=== PATIENT | female | born 1950 | race Caucasian/White ===

== ENCOUNTER 2016-12-09 20:15 | Inpatient (IN) | payer MEDICARE, BC ==
[~2016-12-09] VITALS: Ht 165.1 cm; Wt 75.2 kg
[~2016-12-09 20:15] MED LIST: ASPI-110 PO; ASPI81; CENTTAB PO; HYDR25TA5 PO; LEXA10TA PO; LISI-515 PO; MONT10TA4 PO; SIMV20TA PO
[2016-12-09 20:35] VITALS: BP 150/81; PULSE 73; RESP 20; TEMP 97.6; O2SAT 98
[2016-12-09 20:47] VITALS: BP 150/81; PULSE 73; RESP 20; TEMP 97.6; O2SAT 98
[2016-12-09] MEDS ORDERED: SODIUM CHLOR 0.9% 1000 ML INJ 1,000 ML IV ONE (21:30)
[2016-12-09] MEDS ORDERED: ONDANSETRON HCL 4 MG/2 ML VIAL IV PUSH ONE (21:30)
--- NOTE | 2016-12-09 21:39 | PD ---
HPI Chief Complaint: Psychiatric Symptoms Time Seen by Provider: 20:59 Travel History International Travel<30 days: No Contact w/Intl Traveler<30days: No Traveled to known affect area: No History of Present Illness HPI Patient is a 66-year-old female presenting to the emergency department for psychiatric evaluation. Patient admits to take for of her 's oxycodone' s evening after drinking almost an entire bottle of wine. She states that she did this because she was feeling sad and depressed and had suicidal thoughts. Patient states that she took 3 or 4 of those pills. She reports drinking alcohol on a daily basis, is at bedside and states that she is hiding alcohol. Patient has a 30 year history of depression, she has no previous suicide attempts but states she's felt suicidal in the past approximately 22 years ago. Patient states over the last 2 months her depression has worsened which is consistent with the increase in alcohol intake per her 's report. She is currently on Lexapro 20 mg a day. She reports compliance with this medication. She denies any visual or auditory Hallucinations. Patient fell at home after she took the oxycodone, the fall was not witnessed and found her in the bushes. Patient denies any headache, chest pain, shortness of breath, abdominal pain. She has abrasions to her back. PFSH Past Medical History Hx Anticoagulant Therapy: No (Low dose ASA daily) Depression: Yes Cancer: Yes (skin cancer) Cardiovascular Problems: No High Cholesterol: Yes Chemotherapy: No Cerebrovascular Accident: No Diabetes: No Diminished Hearing: No Hypertension: Yes Respiratory: No Immunizations Current: Yes Triglycerides - High: Yes Tetanus Vaccination: Unknown Influenza Vaccination: No ?: Not Menopausal: Yes : 0 Past Surgical History Hysterectomy: No Other Surgery: Yes (SKIN CA) Social History Alcohol Use: Yes Tobacco Use: Yes Substance Use: No Allergies-Medications (Allergen,Severity, Reaction): Coded Allergies: No Known Allergies (Verified , 06/17/16) Reported Meds & Prescriptions Reported Meds & Active Scripts Active Reported Aspirin 81 (Aspirin) 81 Mg Tabdr 81 Mg PO DAILY Centrum Silver (Multiple Vitamins W/ Minerals) 1 Tab 1 Tab PO DAILY Montelukast (Montelukast Sodium) 10 Mg Tab 10 Mg PO HS Lexapro (Escitalopram Oxalate) 10 Mg Tab 10 Mg PO DAILY Hydrochlorothiazide 25 Mg Tab 25 Mg PO DAILY Lisinopril 20 Mg Tab 20 Mg PO DAILY Simvastatin 20 Mg Tab 20 Mg PO DAILY Aspirin 81 Mg Tab Review of Systems Except as stated in HPI: all other systems reviewed are Neg Gastrointestinal: Positive: Nausea, Vomiting Psychiatric: Positive: Depression, Suicidal Ideations, Substance Abuse Physical Exam Exam Limitations: Intoxication Narrative GENERAL: Well-developed, well-nourished, alert female. Resting in no acute distress. SKIN: Warm and dry. Superficial abrasion to left mid back, mild bruising to left lower back. HEAD: Atraumatic. Normocephalic. EYES: Pupils equal and round. No scleral icterus. No injection or drainage. ENT: No nasal bleeding or discharge. Mucous membranes pink and moist. NECK: Trachea midline. No JVD. CARDIOVASCULAR: Regular rate and rhythm. RESPIRATORY: No accessory muscle use. Clear to auscultation. Breath sounds equal bilaterally. GASTROINTESTINAL: Abdomen soft, non-tender, nondistended. Hepatic and splenic margins not palpable. MUSCULOSKELETAL: Extremities without clubbing, cyanosis, or edema. No obvious deformities. NEUROLOGICAL: Awake and alert. No obvious cranial nerve deficits. Motor grossly within normal limits. Five out of 5 muscle strength in the arms and legs. Normal speech. PSYCHIATRIC: Appropriate mood and affect; insight and judgment normal. Data Data Last Documented VS Vital Signs Date Time Temp Pulse Resp B/P (MAP) Pulse Ox O2 Delivery O2 Flow Rate FiO2 12/09/16 20:47 97.6 73 20 150/81 (104) 98 Room Air Orders Orders Complete Blood Count With Diff (12/09/16 21:17) Comprehensive Metabolic Panel (12/09/16 21:17) Urinalysis - C+S If Indicated (12/09/16 21:17) Psych Screen (12/09/16 21:17) Drug Screen, Random Urine (12/09/16 21:17) Alcohol (Ethanol) (12/09/16 21:17) Salicylates (Aspirin) (12/09/16 21:17) Tylenol (Acetaminophen) (12/09/16 21:17) Iv Access Insert/Monitor (12/09/16 21:20) Ondansetron Inj (Zofran Inj) (12/09/16 21:30) Sodium Chlor 0.9% 1000 Ml Inj (Ns 1000 M (12/09/16 21:30) Ct Brain W/O Iv Contrast(Rout) (12/09/16 ) Chest, Single Ap (12/09/16 ) Potassium Chloride (Kcl) (12/09/16 23:45) Ondansetron Inj (Zofran Inj) (12/10/16 04:15) Labs Laboratory Tests Test 12/09/16 22:00 12/09/16 23:15 White Blood Count 13.9 TH/MM3 Red Blood Count 3.74 MIL/MM3 Hemoglobin 12.8 GM/DL Hematocrit 36.6 % Mean Corpuscular Volume 97.9 FL Mean Corpuscular Hemoglobin 34.3 PG Mean Corpuscular Hemoglobin Concent 35.1 % Red Cell Distribution Width 11.6 % Platelet Count 306 TH/MM3 Mean Platelet Volume 7.5 FL Neutrophils (%) (Auto) 85.7 % Lymphocytes (%) (Auto) 9.9 % Monocytes (%) (Auto) 4.1 % Eosinophils (%) (Auto) 0.0 % Basophils (%) (Auto) 0.3 % Neutrophils # (Auto) 11.9 TH/MM3 Lymphocytes # (Auto) 1.4 TH/MM3 Monocytes # (Auto) 0.6 TH/MM3 Eosinophils # (Auto) 0.0 TH/MM3 Basophils # (Auto) 0.0 TH/MM3 CBC Comment DIFF FINAL Differential Comment Blood Urea Nitrogen 12 MG/DL Creatinine 0.70 MG/DL Random Glucose 135 MG/DL Total Protein 7.5 GM/DL Albumin 3.9 GM/DL Calcium Level 8.7 MG/DL Alkaline Phosphatase 64 U/L Aspartate Amino Transf (AST/SGOT) 27 U/L Alanine Aminotransferase (ALT/SGPT) 34 U/L Total Bilirubin 0.2 MG/DL Sodium Level 132 MEQ/L Potassium Level 3.0 MEQ/L Chloride Level 95 MEQ/L Carbon Dioxide Level 29.0 MEQ/L Anion Gap 8 MEQ/L Estimat Glomerular Filtration Rate 83 ML/MIN Salicylates Level 2.0 MG/DL Acetaminophen Level 2.2 MCG/ML Ethyl Alcohol Level 152 MG/DL Urine Color YELLOW Urine Turbidity CLEAR Urine pH 6.5 Urine Specific [place] 1.017 Urine Protein TRACE mg/dL Urine Glucose (UA) NEG mg/dL Urine Ketones NEG mg/dL Urine Occult Blood SMALL Urine Nitrite NEG Urine Bilirubin NEG Urine Urobilinogen LESS THAN 2.0 MG/DL Urine Leukocyte Esterase TRACE Urine RBC 3 /hpf Urine WBC 1 /hpf Urine Squamous Epithelial Cells <1 /hpf Urine Hyaline Casts 30 /lpf Urine Mucus FEW /lpf Microscopic Urinalysis Comment CULT NOT INDICATED Urine Opiates Screen NEG Urine Barbiturates Screen NEG Urine Amphetamines Screen NEG Urine Benzodiazepines Screen NEG Urine Cocaine Screen NEG Urine Cannabinoids Screen NEG MDM Medical Decision Making Medical Screen Exam Complete: Yes Emergency Medical Condition: Yes Interpretation(s) Last Impressions Head CT 12/09/16 0000 Signed Impressions: Service Date/Time: Friday, December 09, 2016 21:33 - CONCLUSION: Normal examination. Deonte Hitchcock MD Chest X-Ray 12/09/16 0000 Signed Impressions: Service Date/Time: Friday, December 09, 2016 22:18 - CONCLUSION: Normal examination. Deonte Hitchcock MD Laboratory Tests Test 12/09/16 22:00 12/09/16 23:15 White Blood Count 13.9 TH/MM3 Red Blood Count 3.74 MIL/MM3 Hemoglobin 12.8 GM/DL Hematocrit 36.6 % Mean Corpuscular Volume 97.9 FL Mean Corpuscular Hemoglobin 34.3 PG Mean Corpuscular Hemoglobin Concent 35.1 % Red Cell Distribution Width 11.6 % Platelet Count 306 TH/MM3 Mean Platelet Volume 7.5 FL Neutrophils (%) (Auto) 85.7 % Lymphocytes (%) (Auto) 9.9 % Monocytes (%) (Auto) 4.1 % Eosinophils (%) (Auto) 0.0 % Basophils (%) (Auto) 0.3 % Neutrophils # (Auto) 11.9 TH/MM3 Lymphocytes # (Auto) 1.4 TH/MM3 Monocytes # (Auto) 0.6 TH/MM3 Eosinophils # (Auto) 0.0 TH/MM3 Basophils # (Auto) 0.0 TH/MM3 CBC Comment DIFF FINAL Differential Comment Blood Urea Nitrogen 12 MG/DL Creatinine 0.70 MG/DL Random Glucose 135 MG/DL Total Protein 7.5 GM/DL Albumin 3.9 GM/DL Calcium Level 8.7 MG/DL Alkaline Phosphatase 64 U/L Aspartate Amino Transf (AST/SGOT) 27 U/L Alanine Aminotransferase (ALT/SGPT) 34 U/L Total Bilirubin 0.2 MG/DL Sodium Level 132 MEQ/L Potassium Level 3.0 MEQ/L Chloride Level 95 MEQ/L Carbon Dioxide Level 29.0 MEQ/L Anion Gap 8 MEQ/L Estimat Glomerular Filtration Rate 83 ML/MIN Salicylates Level 2.0 MG/DL Acetaminophen Level 2.2 MCG/ML Ethyl Alcohol Level 152 MG/DL Urine Color YELLOW Urine Turbidity CLEAR Urine pH 6.5 Urine Specific [place] 1.017 Urine Protein TRACE mg/dL Urine Glucose (UA) NEG mg/dL Urine Ketones NEG mg/dL Urine Occult Blood SMALL Urine Nitrite NEG Urine Bilirubin NEG Urine Urobilinogen LESS THAN 2.0 MG/DL Urine Leukocyte Esterase TRACE Urine RBC 3 /hpf Urine WBC 1 /hpf Urine Squamous Epithelial Cells <1 /hpf Urine Hyaline Casts 30 /lpf Urine Mucus FEW /lpf Microscopic Urinalysis Comment CULT NOT INDICATED Vital Signs Date Time Temp Pulse Resp B/P (MAP) Pulse Ox O2 Delivery O2 Flow Rate FiO2 12/09/16 20:47 97.6 73 20 150/81 (104) 98 Room Air 12/09/16 20:35 97.6 73 20 150/81 (104) 98 Differential Diagnosis Substance-induced mood disorder versus contusion versus hemorrhage versus abrasions versus depression versus suicidal ideations versus other Narrative Course Patient is a 66-year-old female currently under Grace act for making suicidal statements and intentionally attempting to overdose on her 's prescription oxycodone. Labs and imaging ordered and pending. Mental health screening discussed with the patient. Psychiatric screen ordered. IV fluids and Zofran ordered, patient was vomiting as a result of taking the oxycodone. Abdominal exam is benign. CBC with a WBC count of 13.9, no signs of infection. CXR and UA unremarkable, patient is afebrile. CMP with a K+ of 3.0, oral replacement ordered Salicylate and acetaminophen level reviewed and no acute abnormalities identified. Pt took the Oxycodone/APAP at 5pm per husbands account, 5 hours passed since ingestion and blood draw with no elevation/abnormality in acetaminophen level. Urine drug screen was negative however it was discussed with my attending physician that oxycodone may not appear positive. Alcohol level is 152, pt was given 1L NS bolus and has had no further vomiting. Patient is medically cleared for psychiatric evaluation at this time. Diagnosis Primary Impression: Medical clearance for psychiatric admission Additional Impressions: Acute alcohol intoxication Qualified Codes: F10.929 - Alcohol use, unspecified with intoxication, unspecified Depression Qualified Codes: F32.9 - Major depressive disorder, single episode, unspecified Suicidal ideation Condition: Stable Nanette Berger [facility] Dec 09, 2016 21:39
--- NOTE | 2016-12-09 21:43 | RADRPT ---
EXAM DATE/TIME: 12/09/2016 22:18 [facility] COMPARISON: No previous studies available for comparison. INDICATIONS : Short of breath. MEDICAL HISTORY : None. SURGICAL HISTORY : None. ENCOUNTER: Initial ACUITY: 1 day PAIN SCORE: 0/10 LOCATION: Bilateral chest FINDINGS: A single view of the chest demonstrates the lungs to be symmetrically aerated without evidence of mas s, infiltrate or effusion. The cardiomediastinal contours are unremarkable. Osseous structures are intact. CONCLUSION: Normal examination. Deonte Hitchcock MD on December 09, 2016 at 21:41 Board Certified Radiologist. This report was verified electronically.
--- NOTE | 2016-12-09 21:56 | RADRPT ---
EXAM DATE/TIME: 12/09/2016 21:33 [facility] COMPARISON: No previous studies available for comparison. INDICATIONS : Altered mental status. RADIATION DOSE: 32.54 CTDIvol (mGy) MEDICAL HISTORY : Hypertension. Substance abuse. SURGICAL HISTORY : None. ENCOUNTER: Initial ACUITY: 1 day PAIN SCALE: 0/10 LOCATION: cranial TECHNIQUE: Multiple contiguous axial images were obtained of the head. Using automated exposure control and adj ustment of the mA and/or kV according to patient size, radiation dose was kept as low as reasonably a chievable to obtain optimal diagnostic quality images. DICOM format image data is available electro nically for review and comparison. FINDINGS: CEREBRUM: The ventricles are normal for age. No evidence of midline shift, mass lesion, hemorrhage or acute in farction. No extra-axial fluid collections are seen. POSTERIOR FOSSA: The cerebellum and brainstem are intact. The 4th ventricle is midline. The cerebellopontine angle i s unremarkable. EXTRACRANIAL: The visualized portion of the orbits is intact. SKULL: The calvaria is intact. No evidence of skull fracture. CONCLUSION: Normal examination. Deonte Hitchcock MD on December 09, 2016 at 21:54 Board Certified Radiologist. This report was verified electronically.
[2016-12-09 22:27] LABS: AUTOMATED NEUTROPHIL # 11.9 TH/MM3 (1.8-7.7); BASOPHIL % 0.3 % (0.0-2.0); HEMATOCRIT 36.6 % (35.0-46.0); HEMO FLAGS DIFF FINAL; LYMPH % 9.9 % (9.0-44.0); LYMPHOCYTE # 1.4 TH/MM3 (1.0-4.8); MEAN CELL VOLUME 97.9 FL (80.0-100.0); MEAN CORPUSCULAR HEMOGLOBIN 34.3 PG (27.0-34.0); MEAN CORPUSCULAR HGB CONC 35.1 % (32.0-36.0); MONO % 4.1 % (0.0-8.0); NEUT % 85.7 % (16.0-70.0); PLATELET COUNT 306 TH/MM3 (150-450); RED BLOOD COUNT 3.74 MIL/MM3 (4.00-5.30); RED CELL DISTRIBUTION WIDTH 11.6 % (11.6-17.2); WHITE BLOOD COUNT 13.9 TH/MM3 (4.0-11.0)
[2016-12-09 22:48] LABS: ANION GAP 8 MEQ/L (5-15); AST (GOT) 27 U/L (15-37); BLOOD UREA NITROGEN 12 MG/DL (7-18); CHLORIDE 95 MEQ/L (98-107); GLOMERULAR FILTRATION RATE 83 ML/MIN (>89); SODIUM (NA) 132 MEQ/L (136-145)
[2016-12-09 22:49] LABS: ACETAMINOPHEN 2.2 MCG/ML (10.0-30.0); ALT (GPT) 34 U/L (10-53)
[2016-12-09 22:51] LABS: ALKALINE PHOSPHATASE 64 U/L (45-117); TOTAL BILIRUBIN ADULT 0.2 MG/DL (0.2-1.0)
[2016-12-09 22:53] LABS: ALCOHOL 152 MG/DL (0-5)
[2016-12-09 23:40] LABS: BLOOD, URINE SMALL (NEG); COMMENT (UR) CULT NOT INDICATED; CULTURE IF INDICATED CULT NOT INDICATED; GLUCOSE,URINE NEG (NEG); HYALINE CAST, URINE 30 /lpf (RARE); KETONE, URINE NEG (NEG); MUCUS URINE FEW /lpf (OCC); NITRITE,URINE NEG (NEG); PH, URINE 6.5 (5.0-8.5); SQUAMOUS EPITHELIAL CELL URINE <1 /hpf (0-5); URINE COLOR YELLOW (YELLW/STRAW)
[2016-12-09] MEDS ORDERED: POTASSIUM CHLORIDE 10 MEQ CONTROLLED RELEASE TAB PO ONE (23:45)
[2016-12-10] MEDS ORDERED: ONDANSETRON HCL 4 MG/2 ML VIAL IV PUSH ONE (04:15)
[2016-12-10 06:03] VITALS: BP 150/66; PULSE 82; RESP 16; TEMP 97.6; O2SAT 95
[2016-12-10 08:03] VITALS: BP 148/73; PULSE 75; RESP 18; TEMP 98.4; O2SAT 97
[2016-12-10 11:27] VITALS: BP 156/77; PULSE 80; RESP 19; O2SAT 100
[2016-12-10] MEDS ORDERED: LORazepam 2 MG TAB PO PRN (17:15)
[2016-12-10] MEDS ORDERED: SODIUM CHLORIDE 0.9% FLUSH 10 ML FLUSH IV FLUSH PRN (17:15)
[2016-12-10] MEDS ORDERED: FLUMAZENIL 0.5 MG/5 ML VIAL IV PUSH PRN (17:15)
[2016-12-10] MEDS ORDERED: MAGNESIUM HYDROXIDE SUSP 30 ML CUP PO PRN (17:15)
[2016-12-10] MEDS ORDERED: LORazepam 1 MG TAB PO PRN ×2 (17:15)
[2016-12-10] MEDS ORDERED: LORazepam 2 MG/ML VIAL IM PRN (17:15)
[2016-12-10] MEDS ORDERED: ACETAMINOPHEN 325 MG TAB PO PRN (17:15)
[2016-12-10] MEDS ORDERED: ALUMINUM/MAGNESIUM/SIMETH 30 ML CUP PO PRN (17:15)
[2016-12-10] MEDS ORDERED: LORazepam 2 MG/ML VIAL IV PUSH PRN ×4 (17:15)
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
[2016-12-10 18:04] VITALS: BP 147/83; PULSE 80; RESP 17; O2SAT 97
[2016-12-10] MEDS: SODIUM CHLORIDE 0.9% FLUSH 10 ML FLUSH IV FLUSH SCH (21:00)
[2016-12-10] MEDS: MONTELUKAST SODIUM 10 MG TAB PO SCH ×2 (21:00→21:52)
[2016-12-10 21:23] VITALS: BP 156/73; PULSE 82; RESP 18; TEMP 98.7; O2SAT 95
[2016-12-10] MEDS: traZODone HCL 50 MG TAB PO PRN (21:52)
[2016-12-11 02:00] VITALS: BP 138/63; PULSE 62; RESP 18; TEMP 98.2; O2SAT 98
[2016-12-11 06:21] VITALS: BP 152/69; PULSE 64; RESP 18; TEMP 97.2; O2SAT 95
[2016-12-11] MEDS: ASPIRIN 81 MG CHEW TAB PO SCH (08:41)
[2016-12-11] MEDS: LISINOPRIL 20 MG TAB PO SCH (08:41)
[2016-12-11] MEDS: PRAVASTATIN SOD 40 MG TAB PO SCH (08:41)
[2016-12-11] MEDS ORDERED: THIAMINE HCL 100 MG TAB PO ONE (08:45)
[2016-12-11] MEDS ORDERED: FOLIC ACID 1 MG TAB PO ONE (08:45)
[2016-12-11] MEDS ORDERED: INFLUENZA VIRUS VACCINE (QUADRIVALENT) 0.5 ML SYR IM ONE (09:00)
[2016-12-11] MEDS: MULTIVITAMINS/MINERALS THERAPEUTIC TAB PO SCH (09:00)
[2016-12-11] MEDS: SODIUM CHLORIDE 0.9% FLUSH 10 ML FLUSH IV FLUSH SCH ×2 (09:00→21:00)
[2016-12-11 12:20] VITALS: BP 163/70; PULSE 81
[2016-12-11] MEDS ORDERED: MAGNESIUM HYDROXIDE SUSP 30 ML CUP PO PRN (12:30)
[2016-12-11] MEDS ORDERED: ALUMINUM/MAGNESIUM/SIMETH 30 ML CUP PO PRN (12:30)
--- NOTE | 2016-12-11 12:34 | HHI.PYPN ---
Subjective Chief Complaint: patient depressed vaguely suicidal ideation alcohol intoxication Remarks Patient is 66-year-old white female initially admitted by Dr. Heri Remy who did the initial psychiatric H&P. I have done the psychiatric admission template and the review of reconciliation of medication. Patient seen by me with family practice resident bina and nurse Nati morin. Patient alert oriented calm cooperative is somewhat talkative. Memorizing her alcohol use. The lodging perhaps drinking a little more wine than she should've the past few weeks. She states she is under some stress with problems related to therefore eformoterol that the used to somewhat pearly US during the summertime. Patient states a history of depression though she denies past suicidal ideation. She did state a history of that to other staff. She denies any prior psychiatric hospitalization. She did acknowledge seeing a psychiatrist the [facility] see area number of years ago. In any event at the present time patient denies suicidality homicidality voices or visions. Patient is been placed on the ciwa protocol. Though has not shown any need for treatment at this time. At this time we'll continue monitoring patient next 24 hours. If she shows no signs of withdrawal and a mood remained stable consider discharging her tomorrow with referral both mental health workers and to substance abuse assessment Review of Systems Except as stated in HPI: all other systems reviewed are Neg Mental Status Examination Appearance: Appropriate Consciousness: Alert Orientation: x4 Motor Activity: Normal gait Speech: Unremarkable Language: Adequate Fund of Knowledge: Adequate Attention and Concentration: Adequate Memory: Unremarkable Mood: Appropriate, Sad, Anxious Affect: Sad, Anxious Thought Process & Associations: Intact Thought Content: Appropriate Hallucination Type: None Delusion Type: None Suicidal Ideation: Yes (denies today) Suicidal Plan: Yes (denies today) Suicidal Intention: Yes (denies today) Homicidal Ideation: No Homicidal Plan: No Homicidal Intention: No Insight: Adequate Judgment: Adequate Results Vitals/IOs Vital Signs Date Time Temp Pulse Resp B/P (MAP) Pulse Ox O2 Delivery O2 Flow Rate FiO2 12/11/16 06:21 97.2 64 18 152/69 (96) 95 12/10/16 18:04 Room Air Assessment & Plan Problem List: (1) Depression, major, single episode, severe ICD Codes: F32.2 - Major depressive disorder, single episode, severe without psychotic features (2) Acute alcohol intoxication ICD Codes: F10.929 - Alcohol use, unspecified with intoxication, unspecified Status: Acute Assessment & Plan Patient's mood appears to be lifting somewhat, she does denies suicidality homicidality voices or visions. She's been compliant with her medications. She has, so far, not showing signs withdrawal. Patient remained stable over the next 24 hours will consider discharge tomorrow Justification for Cont. Inpt. Further observation for possibility of withdrawal symptoms to develop Discharge Planning Consider discharge if patient's him tomorrow if no signs of withdrawal develop Request HC Surrog/Guard Advoc?: No Problem Qualifiers (1) Acute alcohol intoxication: Qualified Codes: F10.929 - Alcohol use, unspecified with intoxication, unspecified Byron Roberts MD Dec 11, 2016 12:33
[2016-12-11 12:41] LABS: AUTOMATED NEUTROPHIL # 5.7 TH/MM3 (1.8-7.7); BASOPHIL # 0.1 TH/MM3 (0-0.2); BASOPHIL % 0.8 % (0.0-2.0); EOSINOPHIL # 0.1 TH/MM3 (0-0.4); EOSINOPHIL % 0.8 % (0.0-4.0); HEMATOCRIT 37.7 % (35.0-46.0); HEMO FLAGS DIFF FINAL; LYMPH % 22.3 % (9.0-44.0); LYMPHOCYTE # 1.9 TH/MM3 (1.0-4.8); MEAN CELL VOLUME 99.7 FL (80.0-100.0); MEAN CORPUSCULAR HGB CONC 35.1 % (32.0-36.0); MONO % 8.6 % (0.0-8.0); NEUT % 67.5 % (16.0-70.0); PLATELET COUNT 295 TH/MM3 (150-450); RED BLOOD COUNT 3.78 MIL/MM3 (4.00-5.30); RED CELL DISTRIBUTION WIDTH 11.8 % (11.6-17.2); WHITE BLOOD COUNT 8.4 TH/MM3 (4.0-11.0)
[2016-12-11 12:54] LABS: ALT (GPT) 29 U/L (10-53); ANION GAP 7 MEQ/L (5-15); AST (GOT) 21 U/L (15-37); BICARBONATE 28.1 MEQ/L (21.0-32.0); BLOOD UREA NITROGEN 11 MG/DL (7-18); CHLORIDE 101 MEQ/L (98-107); GLOMERULAR FILTRATION RATE 91 ML/MIN (>89); POTASSIUM 3.7 MEQ/L (3.5-5.1); SODIUM (NA) 136 MEQ/L (136-145)
[2016-12-11 13:21] LABS: ALKALINE PHOSPHATASE 77 U/L (45-117); HDL CHOLESTEROL 84.3 MG/DL (40.0-60.0); LDL CHOLESTEROL 101 MG/DL (0-99); TOTAL BILIRUBIN ADULT 0.5 MG/DL (0.2-1.0)
[2016-12-11 13:46] LABS: MAGNESIUM 2.3 MG/DL (1.5-2.5)
[2016-12-11 13:49] LABS: FREE T4 0.94 NG/DL (0.76-1.46)
--- NOTE | 2016-12-11 14:06 | EKG ---
Date Performed: 12/10/2016 Time Performed: 18:04:37 PTAGE: 66 years EKG: Sinus rhythm ST DEVIATION AND MODERATE T-WAVE ABNORMALITY, CONSIDER ANTERIOR ISCHEMIA ABNORMAL ECG NO PREVIOUS TRACING DOCTOR: Wyatt Crum Interpretating Date/Time 12/11/2016 13:57:57
--- NOTE | 2016-12-11 15:40 | PD.CONS ---
[facility] By [facility] PAYNE Reason for Consult CONCERN FOR ALCOHOL WITHDRAWALS AND MEDICAL ISSUES Primary Care Physician Iram Clifton MD Diagnoses: (1) Alcohol abuse (2) Hypertriglyceridemia (3) Depression History of Present Illness PATIENT IS A 66 YEAR OLD FEMALE WHO PRESENTED TO THE ER FOR PSYCHIATRIC EVALUATION. PATIENT HAS BEEN TAKING HER 'S OXYCODONE AND DRINKING A BOTTLE OF WINE DAILY. HAD DEPRESSION AND SUICIDAL THOUGHTS. HAS EXTENSIVE HISTORY OF DEPRESSION. HAD FALLEN PRIOR TO COMING INTO THE HOSPITAL WE HAVE BEEN ASKED TO SEE FOR HELP WITH MEDICAL MANAGEMENT Review of Systems Constitutional: DENIES: Diaphoretic episodes, Fatigue, Fever, Weight gain, Weight loss, Chills, Dizziness, Change in appetite Endocrine: DENIES: Abnorml menstrual pattern, Heat/cold intolerance, Polydipsia , Polyuria, Polyphagia Eyes: DENIES: Blurred vision, Diplopia, Eye inflammation, Eye pain, Vision loss , Photosensitivity Ears, nose, mouth, throat: DENIES: Tinnitus, Hearing loss, Vertigo, Nasal discharge Respiratory: DENIES: Apneas, Cough, Snoring, Wheezing Cardiovascular: DENIES: Chest pain, Palpitations, Syncope, Dyspnea on Exertion Gastrointestinal: DENIES: Black stools, Bloody stools, Constipation Genitourinary: DENIES: Abnormal vaginal bleeding, Dysmenorrhea, Dyspareunia Musculoskeletal: DENIES: Joint pain, Muscle aches, Stiffness, Joint Swelling Integumentary: DENIES: Abnormal pigmentation, Pruritus Hematologic/lymphatic: DENIES: Bruising, Lymphadenopathy Immunologic/allergic: DENIES: Eczema, Urticaria Neurologic: DENIES: Abnormal gait, Headache, Localized weakness, Paresthesias, Seizures, Speech Problems Psychiatric: COMPLAINS OF: Depression, DENIES: Anxiety, Confusion, Mood changes Past Family Social History Allergies: Coded Allergies: No Known Allergies (Verified , 06/17/16) Past Medical History HYPERCHOLESTEROLEMIA HYPERTRIGLYCERIDEMIA HYPERTENSION ALLERGIES Past Surgical History SKIN CANCER SURGERY Reported Medications Reported Meds & Active Scripts Active Reported Aspirin 81 (Aspirin) 81 Mg Tabdr 81 Mg PO DAILY Centrum Silver (Multiple Vitamins W/ Minerals) 1 Tab 1 Tab PO DAILY Montelukast (Montelukast Sodium) 10 Mg Tab 10 Mg PO HS Lexapro (Escitalopram Oxalate) 10 Mg Tab 10 Mg PO DAILY Hydrochlorothiazide 25 Mg Tab 25 Mg PO DAILY Lisinopril 20 Mg Tab 20 Mg PO DAILY Simvastatin 20 Mg Tab 20 Mg PO DAILY Aspirin 81 Mg Tab Active Ordered Medications Current Medications Ondansetron HCl (Zofran Inj) 4 mg ONCE ONCE IV PUSH Last administered on 12/09 22:00; Start 12/09/16 at 21:30; Stop 12/09/16 at 21:31; Status DC Sodium Chloride 1,000 ml @ 999 mls/hr BOLUS ONCE IV Last administered on 21:30; Start 12/09/16 at 21:30; Stop 12/09/16 at 22:30; Status DC Potassium Chloride (KCl) 60 meq ONCE ONCE PO Last administered on 12/10/16 00:00; Start 12/09/16 at 23:45; Stop 12/09/16 at 23:46; Status DC Ondansetron HCl (Zofran Inj) 4 mg ONCE ONCE IV PUSH Last administered on 12/10 04:31; Start 12/10/16 at 04:15; Stop 12/10/16 at 04:16; Status DC Lorazepam (Ativan) 1 mg Q6H PRN PO MODERATE TO SEVERE ANXIETY; Start 12/10/16 at 17:15; Stop 12/11/16 at 12:24; Status DC Lorazepam (Ativan Inj) 1 mg Q6H PRN IM MODERATE TO SEVERE ANXIETY; Start 12/10 at 17:15; Stop 12/11/16 at 12:24; Status DC Acetaminophen (Tylenol) 650 mg Q4H PRN PO Pain 1-5 or Temp >101F; Start at 17:15; Stop 12/11/16 at 13:02; Status DC Magnesium Hydroxide (Milk Of Magnesia Liq) 30 ml DAILY PRN PO CONSTIPATION; Start 12/10/16 at 17:15; Stop 12/11/16 at 13:03; Status DC Al Hydrox/Mg Hydrox/Simethicone (Mag-Al Plus Susp Liq) 30 ml Q6H PRN PO DYSPEPSIA; Start 12/10/16 at 17:15; Stop 12/11/16 at 13:02; Status DC Trazodone HCl (Desyrel) 50 mg HS PRN PO INSOMNIA Last administered on 21:52; Start 12/10/16 at 17:15 Sodium Chloride (NS Flush) 2 ml UNSCH PRN IV FLUSH FLUSH AFTER USING IV ACCESS ; Start 12/10/16 at 17:15 Sodium Chloride (NS Flush) 2 ml BID IV FLUSH ; Start 12/10/16 at 21:00 Flumazenil (Romazicon Inj) 0.2 mg Q1M PRN IV PUSH SEE LABEL COMMENTS; Start at 17:15 Lorazepam (Ativan) 1 mg Q4H PRN PO CIWA 8 - 10; Start 12/10/16 at 17:15 Lorazepam (Ativan Inj) 1 mg Q4H PRN IV PUSH CIWA 8 - 10; Start 12/10/16 at 17: 15 Lorazepam (Ativan) 2 mg Q2H PRN PO CIWA 11-14; Start 12/10/16 at 17:15 Lorazepam (Ativan Inj) 2 mg Q2H PRN IV PUSH CIWA 11-14; Start 12/10/16 at 17: 15 Lorazepam (Ativan Inj) 2 mg Q1H PRN IV PUSH CIWA 15-20; Start 12/10/16 at 17: 15 Lorazepam (Ativan Inj) 2 mg Q15M PRN IV PUSH CIWA > 20; Start 12/10/16 at 17: 15 Aspirin (Aspirin Chew) 81 mg DAILY PO Last administered on 12/11/16 08:41; Start 12/11/16 at 09:00 Lisinopril (Prinivil) 20 mg DAILY PO Last administered on 12/11/16 08:41; Start 12/11/16 at 09:00 Montelukast Sodium (Singulair) 10 mg HS PO Last administered on 12/10/16 21: 52; Start 12/10/16 at 21:00 Pravastatin Sodium (Pravachol) 40 mg DAILY PO Last administered on 12/11/16 08:41; Start 12/11/16 at 09:00 Influenza Virus Vaccine (Flu (Quadrivalent) Vaccine Inj) 0.5 ml ONCE ONCE IM Last administered on 12/11/16 08:43; Start 12/11/16 at 09:00; Stop 12/11/16 at 09:01; Status DC Multivitamins/ Minerals Therapeutic (Theragran M Tab) 1 tab DAILY PO ; Start at 09:00 Thiamine HCl (Vitamin B1) 100 mg ONCE ONCE PO ; Start 12/11/16 at 08:45; Stop 12/11/16 at 09:29; Status DC Thiamine HCl (Vitamin B1) 100 mg DAILY PO ; Start 12/12/16 at 09:00 Folic Acid (Folate) 1 mg ONCE ONCE PO ; Start 12/11/16 at 08:45; Stop at 09:28; Status DC Folic Acid (Folate) 1 mg DAILY PO ; Start 12/12/16 at 09:00 Acetaminophen (Tylenol) 650 mg Q4H PRN PO Pain 1-5 or Temp >101F; Start at 12:30 Magnesium Hydroxide (Milk Of Magnesia Liq) 30 ml DAILY PRN PO CONSTIPATION; Start 12/11/16 at 12:30 Al Hydrox/Mg Hydrox/Simethicone (Mag-Al Plus Susp Liq) 30 ml Q6H PRN PO DYSPEPSIA; Start 12/11/16 at 12:30 Escitalopram Oxalate (Lexapro) 10 mg DAILY PO ; Start 12/12/16 at 09:00 Hydrochlorothiazide (Hydrodiuril) 25 mg DAILY PO ; Start 12/12/16 at 09:00 Family History DEPRESSION AND ANXIETY Social History TOBACCO AND ALCOHOL AND OXYCODONE Physical Exam Vital Signs Vital Signs Date Time Temp Pulse Resp B/P (MAP) Pulse Ox O2 Delivery O2 Flow Rate FiO2 12/11/16 12:20 81 163/70 (101) 12/11/16 06:21 97.2 64 18 152/69 (96) 95 12/11/16 02:00 98.2 62 18 138/63 (88) 98 12/10/16 21:23 98.7 82 18 156/73 (100) 95 12/10/16 19:30 12/10/16 18:04 80 17 147/83 (104) 97 Room Air Physical Exam GENERAL: This is a well-nourished, well-developed patient, in no apparent distress. SKIN: No rashes, ecchymoses or lesions. Cool and dry. HEAD: Atraumatic. Normocephalic. No temporal or scalp tenderness. EYES: Pupils equal round and reactive. Extraocular motions intact. No scleral icterus. No injection or drainage. ENT: Nose without bleeding, purulent drainage or septal hematoma. Throat without erythema, tonsillar hypertrophy or exudate. Uvula midline. Airway patent. NECK: Trachea midline. No JVD or lymphadenopathy. Supple, nontender, no meningeal signs. CARDIOVASCULAR: Regular rate and rhythm without murmurs, gallops, or rubs. S1, S2 NO S3 OR S4 RESPIRATORY: Clear to auscultation. Breath sounds equal bilaterally. No wheezes , rales, or rhonchi. GASTROINTESTINAL: Abdomen soft, non-tender, nondistended. No hepato-splenomegaly , or palpable masses. No guarding. MUSCULOSKELETAL: Extremities without clubbing, cyanosis, or edema. No joint tenderness, effusion, or edema noted. No calf tenderness. Negative Homans sign bilaterally. NEUROLOGICAL: Awake and alert. Cranial nerves II through XII intact. Motor and sensory grossly within normal limits. Five out of 5 muscle strength in all muscle groups. Normal speech. Laboratory Laboratory Tests Test 12/11/16 10:50 White Blood Count 8.4 Red Blood Count 3.78 Hemoglobin 13.2 Hematocrit 37.7 Mean Corpuscular Volume 99.7 Mean Corpuscular Hemoglobin 35.0 Mean Corpuscular Hemoglobin Concent 35.1 Red Cell Distribution Width 11.8 Platelet Count 295 Mean Platelet Volume 8.3 Neutrophils (%) (Auto) 67.5 Lymphocytes (%) (Auto) 22.3 Monocytes (%) (Auto) 8.6 Eosinophils (%) (Auto) 0.8 Basophils (%) (Auto) 0.8 Neutrophils # (Auto) 5.7 Lymphocytes # (Auto) 1.9 Monocytes # (Auto) 0.7 Eosinophils # (Auto) 0.1 Basophils # (Auto) 0.1 CBC Comment DIFF FINAL Differential Comment Blood Urea Nitrogen 11 Creatinine 0.65 Random Glucose 75 Total Protein 8.0 Albumin 4.0 Calcium Level 8.8 Alkaline Phosphatase 77 Aspartate Amino Transf (AST/SGOT) 21 Alanine Aminotransferase (ALT/SGPT) 29 Total Bilirubin 0.5 Sodium Level 136 Potassium Level 3.7 Chloride Level 101 Carbon Dioxide Level 28.1 Anion Gap 7 Estimat Glomerular Filtration Rate 91 Phosphorus Level 2.8 Magnesium Level 2.3 Triglycerides Level 225 Cholesterol Level 230 LDL Cholesterol 101 HDL Cholesterol 84.3 Cholesterol/HDL Ratio 2.72 Vitamin B12 Level 379 25-Hydroxy Vitamin D Total 11.5 Free Thyroxine 0.94 Thyroid Stimulating Hormone 3rd Gen 1.020 Result Diagram: 12/11/16 1050 12/11/16 1050 Imaging Last Impressions Head CT 12/09/16 0000 Signed Impressions: Service Date/Time: Friday, December 09, 2016 21:33 - CONCLUSION: Normal examination. Deonte Hitchcock MD Chest X-Ray 12/09/16 0000 Signed Impressions: Service Date/Time: Friday, December 09, 2016 22:18 - CONCLUSION: Normal examination. Deonte Hitchcock MD Assessment and Plan Problem List: (1) Hypertension ICD Code: I10 - Essential (primary) hypertension (2) Hyperlipidemia ICD Code: E78.5 - Hyperlipidemia, unspecified (3) Alcohol abuse ICD Code: F10.10 - Alcohol abuse, uncomplicated (4) Hypertriglyceridemia ICD Code: E78.1 - Pure hyperglyceridemia (5) Depression ICD Code: F32.9 - Major depressive disorder, single episode, unspecified Status: Acute Assessment and Plan DEPRESSION AND ANXIETY WILL DEFER TO PSYCHIATRY ALCOHOL ABUSE CONTINUE ON CIWA PROTOCOLS WELL THIAMINE, FOLIC ACID, MULTIVITAMIN HYPERTENSION HOME MEDS HYPERLIPIDEMIA- CONTINUE STATIN LABS ARE STABLE WILL SIGN OFF PLEASE CALL IF NEEDED Code Status FULL CODE Discussed Condition With RN AND PATIENT Problem Qualifiers (1) Depression: Qualified Codes: F32.9 - Major depressive disorder, single episode, unspecified Mono Velasco DO Dec 11, 2016 15:40
[2016-12-11 16:34] LABS: HEMOGLOBIN A1b 0.9 %; HEMOGLOBIN Ao 84.8 %; HEMOGLOBIN F 1.2 %; HEMOGLOBIN LA1C 2.1 %; HEMOGLOBIN P3 3.7 %
[2016-12-11] MEDS: ACETAMINOPHEN 325 MG TAB PO PRN (17:38)
[2016-12-11 17:45] VITALS: BP 135/86; PULSE 71; RESP 18; TEMP 98.1; O2SAT 99
[2016-12-11] MEDS: traZODone HCL 50 MG TAB PO PRN (21:12)
[2016-12-11] MEDS: MONTELUKAST SODIUM 10 MG TAB PO SCH (21:12)
[2016-12-12] MEDS: ACETAMINOPHEN 325 MG TAB PO PRN (05:16)
[2016-12-12 06:25] VITALS: BP 112/69; PULSE 68; RESP 16; TEMP 97.9; O2SAT 95
[2016-12-12] MEDS: SODIUM CHLORIDE 0.9% FLUSH 10 ML FLUSH IV FLUSH SCH (08:24)
[2016-12-12 08:55] VITALS: BP 120/82
[2016-12-12] MEDS ORDERED: HYDROCHLOROTHIAZIDE 25 MG TAB PO SCH (09:00)
[2016-12-12] MEDS ORDERED: ESCITALOPRAM OXALATE 10 MG TAB PO SCH (09:00)
[2016-12-12] MEDS ORDERED: FOLIC ACID 1 MG TAB PO SCH (09:00)
[2016-12-12] MEDS ORDERED: THIAMINE HCL 100 MG TAB PO SCH (09:00)
[2016-12-12] MEDS: ASPIRIN 81 MG CHEW TAB PO SCH (09:37)
[2016-12-12] MEDS: MULTIVITAMINS/MINERALS THERAPEUTIC TAB PO SCH (09:38)
[2016-12-12] MEDS: LISINOPRIL 20 MG TAB PO SCH (09:38)
[2016-12-12] MEDS: PRAVASTATIN SOD 40 MG TAB PO SCH (09:39)
[2016-12-12] MEDS ORDERED: ESCI10TA PO (14:10)
--- NOTE | 2016-12-12 14:16 | HHI.DS ---
Psychiatry Discharge Summary Inpatient Psychiatric care?: Yes Advance Directive: No Reason Not Provided: DOES NOT HAVE Mental Health AdvanceDirective: No Health Care Proxy: No Admission Admission Date Dec 10, 2016 at 17:13 Admission Diagnosis: (1) Depression, major, single episode, severe ICD Code: F32.2 - Major depressive disorder, single episode, severe without psychotic features (2) Acute alcohol intoxication ICD Code: F10.929 - Alcohol use, unspecified with intoxication, unspecified Brief History 66-year-old female brought in under a Grace act after overdosing on her ' s oxycodone while consuming a bottle of wine. Patient describes a several month history of increasing symptoms of depression including depressed mood and suicidal thoughts. She took approximately 4 of her 's oxycodone pills. She has a history of suicidality some 20 years ago. She has been drinking too much alcohol, in her own words, over the last several months. She has been treated with Lexapro 20 mg per day but this is not helping. She describes falling at home and her found her in the bushes, outside their house. She admits to symptoms of depressed mood, anhedonia, decreased energy, anxiety, insomnia, suicidal thoughts, feelings of hopelessness and helplessness, diminished self-esteem, etc. Tobacco Use In Past 30 Days: 5 or More Cigarettes/Day Alcohol Use: 4 or More Times Per Week Hospital Course Patient's hospital course was uneventful, she shows no signs of withdrawal, has been compliant with medications. Does denies suicidality homicidality voices or visions. Does have insight into need to get treatment both for her mental health issues and for her alcohol abuse. At this time patient reached maximum benefit of this hospitalization. She is to be discharged later . Rx times a month with follow-up [facility] Also referred to substance abuse counseling perhaps through her religion Results Blood Pressure 120 / 82 Vital Signs Date Time Temp Pulse Resp B/P (MAP) Pulse Ox O2 Delivery O2 Flow Rate FiO2 12/12/16 08:55 120/82 (95) 12/12/16 06:25 97.9 68 16 95 12/10/16 18:04 Room Air Laboratory Tests Test 12/09/16 22:00 12/09/16 23:15 12/11/16 10:50 White Blood Count 13.9 TH/MM3 (4.0-11.0) Red Blood Count 3.74 MIL/MM3 (4.00-5.30) 3.78 MIL/MM3 (4.00-5.30) Mean Corpuscular Hemoglobin 34.3 PG (27.0-34.0) 35.0 PG (27.0-34.0) Neutrophils (%) (Auto) 85.7 % (16.0-70.0) Neutrophils # (Auto) 11.9 TH/MM3 (1.8-7.7) Random Glucose 135 MG/DL (74-106) Sodium Level 132 MEQ/L (136-145) Potassium Level 3.0 MEQ/L (3.5-5.1) Chloride Level 95 MEQ/L (98-107) Estimat Glomerular Filtration Rate 83 ML/MIN (>89) Salicylates Level 2.0 MG/DL (2.8-20.0) Acetaminophen Level 2.2 MCG/ML (10.0-30.0) Ethyl Alcohol Level 152 MG/DL (0-5) Urine Occult Blood SMALL (NEG) Urine Leukocyte Esterase TRACE (NEG) Urine Mucus FEW /lpf (OCC) Monocytes (%) (Auto) 8.6 % (0.0-8.0) Hemoglobin A1c 6.1 % (4.3-6.0) Triglycerides Level 225 MG/DL (42-150) Cholesterol Level 230 MG/DL (120-200) LDL Cholesterol 101 MG/DL (0-99) HDL Cholesterol 84.3 MG/DL (40.0-60.0) 25-Hydroxy Vitamin D Total 11.5 ng/ML (30-100) Laboratory Results Test 12/11/16 10:50 Cholesterol Level 230 MG/DL (120-200) HDL Cholesterol 84.3 MG/DL (40.0-60.0) Hemoglobin A1c 6.1 % (4.3-6.0) LDL Cholesterol 101 MG/DL (0-99) Triglycerides Level 225 MG/DL (42-150) Summary of Procedures None done Imaging Last Impressions Head CT 12/09/16 0000 Signed Impressions: Service Date/Time: Friday, December 09, 2016 21:33 - CONCLUSION: Normal examination. Deonte Hitchcock MD Chest X-Ray 12/09/16 0000 Signed Impressions: Service Date/Time: Friday, December 09, 2016 22:18 - CONCLUSION: Normal examination. Deonte Hitchcock MD Pending results at discharge: No Medications # of Antipsychotic meds at D/C: 0 Approp Antipsych med options 1 - Minimum of three failed multiple trials of monotherapy. 2 - Documented plan to taper to monotherapy due to previous use of multiple meds OR cross-taper in progress at D/C. 3 - Documentation of augmentation of Clozapine. 4 - Justification other than those listed in allowable values 1-3, document here : Discharge Discharge Date: Dec 12, 2016 Discharge Diagnosis: (1) Acute alcohol intoxication Diagnosis: Secondary ICD Code: F10.929 - Alcohol use, unspecified with intoxication, unspecified Status: Acute (2) Depression, major, single episode, severe Diagnosis: Principal ICD Code: F32.2 - Major depressive disorder, single episode, severe without psychotic features Pt Condition on Discharge: Stable Discharge Disposition: Discharge Home Discharge Instructions Diet Instructions: As Tolerated, No Restrictions Activities you can perform: Regular-No Restrictions Scheduled Appointment: [facility] Appointment Date: Dec 17, 2016 Appointment Time: 1030 Discharge Time > 30 minutes Mental Status Examination Appearance: Appropriate Consciousness: Alert Orientation: x4 Motor Activity: Normal gait Speech: Unremarkable Language: Adequate Fund of Knowledge: Adequate Attention and Concentration: Adequate Memory: Unremarkable Mood: Appropriate, Sad, Anxious Affect: Sad, Anxious Thought Process & Associations: Intact Thought Content: Appropriate Hallucination Type: None Delusion Type: None Suicidal Ideation: Yes (denies today) Suicidal Plan: Yes (denies today) Suicidal Intention: Yes (denies today) Homicidal Ideation: No Homicidal Plan: No Homicidal Intention: No Insight: Adequate Judgment: Adequate Discharge/Advance Care Plan Health Problems: (1) Depression, major, single episode, severe (2) Acute alcohol intoxication Goals to promote your health * To prevent worsening of your condition and complications * To maintain your health at the optimal level Directions to meet your goals Take your medications as prescribed Follow your dietary instruction Follow activity as directed Keep your appointments as scheduled Take your immunizations and boosters as scheduled If your symptoms worsen call your PCP, if no PCP go to Urgent Care Center or Emergency Room For 16/09 questions related to your inpatient stay or results of tests pending at discharge, please contact Dr. Byron Roberts at Smoking is Dangerous to Your Health. Avoid second hand smoking Problem Qualifiers (1) Acute alcohol intoxication: Qualified Codes: F10.929 - Alcohol use, unspecified with intoxication, unspecified Byron Roberts MD Dec 12, 2016 14:16
== END 2016-12-12 16:00 | disposition home or self-care (01) | DRG 885 ==
LOC: NEPD 20:15 → NEDA 12-10 17:13 → H260 12-10 19:36
PROVIDERS: ADMIT Psychiatry & Neurology Psychiatry; ATTEND Psychiatry & Neurology Psychiatry
DX: F32.2 Major depressive disorder, single episode, severe without psychotic features (principal); R45.851 Suicidal ideations; I10 Essential (primary) hypertension; E78.00 Pure hypercholesterolemia, unspecified; E78.1 Pure hyperglyceridemia; F10.120 Alcohol abuse with intoxication, uncomplicated; Y90.6 Blood alcohol level of 120-199 mg/100 ml; F41.9 Anxiety disorder, unspecified; T40.2X2A Poisoning by other opioids, intentional self-harm, initial encounter; F17.210 Nicotine dependence, cigarettes, uncomplicated; Z23 Encounter for immunization; Z81.8 Family history of other mental and behavioral disorders; Z91.81 History of falling; Z91.5 Personal history of self-harm; Z85.828 Personal history of other malignant neoplasm of skin
CPT/HCPCS: 70450; 71010; 80053; 80061; 80307; 81001; 82306; 82607; 82948; 83036; 83735; 84100; 84439; 84443; 85025; 90686; 93005; 96361; 96374; 96376; J2405; J7030; Q2038